=== PATIENT | female | born 1995 | race Caucasian/White ===

== ENCOUNTER → 2021-04-16 08:51 | Outpatient (CLI) | payer BC, SELFPAY ==
--- NOTE | ~2021-04-16 | US_ITS ---
EXAMINATION: US pelvic complete w TV DATE: 04/16/2021 09:12 INDICATION: Dysmenorrhea TECHNIQUE: Multiple transabdominal and endovaginal sonographic images of the pelvis were obtained. COMPARISON: None. FINDINGS: The uterus measures 7.7 x 3.1 x 3.7 cm. The endometrial complex measures 4 mm. The right ov julia measures 2.9 x 2.4 x 5.0 cm. The left ovary measures 5.2 x 3.0 x 4.3 cm. There is a 4.2 cm simple cyst of the left ovary. There is normal vascular flow in the ovaries. There is no free fluid in the pelvis. IMPRESSION: 1. No sonographic correlate for the patient's symptoms. Reviewed, dictated and finalized at location A.
== END ==
PROVIDERS: Visit Provider Obstetrics & Gynecology
DX: N94.6 Dysmenorrhea, unspecified (principal)
CPT/HCPCS: 76830; 76856

== ENCOUNTER 2021-08-24 17:47 | Emergency (ER) | payer BC, SELFPAY ==
[2021-08-24 18:00] VITALS: BP 133/74; PULSE 99; RESP 18; TEMP 37.4; O2SAT 100
--- NOTE | 2021-08-24 18:03 | ED.URI ---
HPI - URI/Sore Throat General Chief Complaint: Upper Respiratory Infection Stated Complaint: Cough Source: patient and RN notes reviewed Mode of arrival: ambulatory Limitations: no limitations History of Present Illness HPI Narrative: This is a 25-year-old female who presented to urgent care with complaints of uncontrolled cough, with greenish mucus, postnasal dripping, and diarrhea. Patient notes that approximately 3 weeks ago she developed allergy symptoms which worsened she notes that she coughs so hard that it causes her to feel nauseated and want to vomit. She also notes that she often feels shortness of breath due to excessive. She did take DayQuil and Mucinex at home to relieve her symptoms with little relief. The patient denies CP, palpitation, extremity numbness, lightheadedness, dizziness, constipation, diarrhea, chills, or fever. Related Data Home Medications Medication Instructions Recorded Confirmed norethindrone-e.estradiol-iron [Lo 1 tablet PO DAILY 08/24/21 08/24/21 Loestrin Fe] Allergies Allergy/AdvReac Type Severity Reaction Status Date / Time nickel Allergy Unknown Unknown Verified 08/24/21 18:13 Review of Systems Review of Systems: A 14 organ system Review of Systems was performed and pertinent positives included in the HPI, otherwise remaining ROS is negative. [facility] Family History Family History Mother Patient's mother is in good health Father Patient's father is in good health Social History Social History Smoking status: Never smoker Alcohol intake: never Exam Narrative: GENERAL: This is a well-nourished, well-developed patient, in no apparent distress. HEAD: normocephalic, atraumatic. Frontal tenderness EYES: PERRL. Sclera clear/white. Vision is grossly intact. EARS: External ears normal, auditory canals clear and without drainage, TMs normal without perforation. Hearing grossly intact. NOSE: External nose normal with no obvious nasal discharge, nares without redness, no rhinorrhea. THROAT: Mucous membranes moist, posterior pharynx with erythema. NECK: Neck supple, non-tender without lymphadenopathy, masses or thyromegaly. CARDIOVASCULAR: Regular rate and rhythm without murmurs, gallops, or rubs. RESPIRATORY: Clear to auscultation. Breath sounds equal bilaterally. No wheezes, rales, or rhonchi. GASTROINTESTINAL: Abdomen soft, non-tender, nondistended. Bowel sounds are active. No hepato-splenomegaly, or palpable masses. No guarding. SKIN: warm, intact with no suspicious lesions or rash, good texture and turgor. NEURO: awake, alert, and oriented to person, place and time. There were no obvious focal neurologic abnormalities. Steady gait EXTREMITIES: Normal range of motion. No edema. No calf tenderness. Negative Homans sign bilaterally. BACK: Nontender without deformity or crepitance. No flank tenderness. Course Course Emergency Course: Patient will discharge home with Claritin, Tessalon Perles, Flonase, albuterol, Mucinex Vital Signs Vital signs: Vital Signs Temperature 99.3 F 08/24/21 18:00 Pulse Rate 99 08/24/21 18:00 Respiratory Rate 18 08/24/21 18:00 Blood Pressure 133/74 08/24/21 18:00 Pulse Oximetry 100 08/24/21 18:00 Temperature 99.3 F 08/24/21 18:12 Pulse Rate 99 08/24/21 18:12 Respiratory Rate 18 08/24/21 18:12 Blood Pressure 133/74 08/24/21 18:12 Pulse Oximetry 100 08/24/21 18:12 MDM - URI/Sore Throat Differential Diagnosis Differential diagnosis: Likely upper respiratory infection, otitis media, sinusitis, influenza and pharyngitis Discharge Plan Discharge Clinical Impression: Sinusitis Qualifiers: Sinusitis location: frontal Patient Disposition: Home, Self-Care Condition: Stable Instructions: Antibiotic Form, Sinusitis (ED) Additional Instructions: What are the symptoms of sinusitis? - Common
[2021-08-24 18:12] VITALS: BP 133/74; PULSE 99; RESP 18; TEMP 37.4; O2SAT 100
== END 2021-08-24 18:28 | disposition home or self-care (01) ==
PROVIDERS: Emergency Provider Nurse Practitioner
DX: J32.1 Chronic frontal sinusitis (principal)
CPT/HCPCS: 99203; G0463